=== PATIENT | female | born 1970 | race Two or more races ===

== ENCOUNTER 2024-02-27 17:53 | Inpatient (IN) | payer OTHER ==
[~2024-02-27] VITALS: Ht 165.1 cm; Wt 86.2 kg
[2024-02-27] MEDS ORDERED: LOSARTAN POTAS100 MG PO (18:03)
[2024-02-27] MEDS ORDERED: ZESTRIL20 MG PO (18:03)
[2024-02-27] MEDS ORDERED: MORPHINE SULFATE 4 MG/ML CARTRIDGE IV PRN (18:15)
[2024-02-27] MEDS ORDERED: PIPERACILLIN/TAZOBACTAM SODIUM 3.375 GM in 0.9 % SODIUM CHLORIDE 100 ML IV SCH (18:15)
[2024-02-27] MEDS ORDERED: FAMOTIDINE/PF 20 MG in 0.9 % SODIUM CHLORIDE 8 ML IV PUSH STA (18:15)
[2024-02-27] MEDS ORDERED: RINGERS SOLUTION,LACTATED 1,000 ML IV SCH (18:30)
[2024-02-27 18:50] LABS: HEMATOCRIT 41.1 % (36.0-45.00); HEMOGLOBIN 13.5 g/dL (12.0-15.00); MEAN CELL VOLUME 81.7 fL (80.00-100.00); MEAN CORPUSCULAR HEMOGLOBIN 26.8 pg (27.00-32.0); MEAN CORPUSCULAR HGB CONC 32.8 g/dl (32.0-36.0); PLATELET COUNT 244 K/uL (150-450); RED BLOOD COUNT 5.03 M/uL (4.00-6.00); RED CELL DISTRIBUTION WIDTH 14.7 % (11.5-14.5)
[2024-02-27 19:05] LABS: INR 1.23; PARTIAL THROMBOPLASTIN TIME 31.3 SECONDS (22.0-34.0); PROTHROMBIN TIME 13.2 SECONDS (9.0-11.5)
[2024-02-27 19:09] LABS: ALBUMIN 3.5 gm/dL (3.4-5.0); BILIRUBIN TOTAL 1.16 mg/dL (0.3-1.2); CREATININE SERUM 0.91 mg/dL (0.55-1.02); GFR 64.67; GLOBULINA 4.5 G/DL (2.4-3.5); POTASSIUM 3.64 mEq/L (3.5-5.1)
[2024-02-27 19:56] LABS: PH,URINE 5.5 (5.0-8.0); URINE APPEARANCE Clear; URINE BILIRRUBIN Negative (NEGATIVE); URINE BLOOD Negative; URINE COLOR Yellow; URINE GLUCOSE Negative (NEGATIVE); URINE KETONE 15 (NEGATIVE); URINE LEUKOCYTE Negative; URINE NITRATE Negative; URINE PROTEIN 30 (NEGATIVE); URINE UROBILINOGEN 0.2 E.U./dl
[2024-02-27 20:28] LABS: URINE BACTERIA SOME; URINE RBC 0-3 /HPF
[2024-02-27] MEDS ORDERED: FAMOTIDINE/PF 20 MG in 0.9 % SODIUM CHLORIDE 8 ML IV PUSH SCH (22:27)
[2024-02-27] MEDS ORDERED: 0.9 % SODIUM CHLORIDE 1,000 ML IV SCH (22:30)
[2024-02-28] MEDS ORDERED: PIPERACILLIN/TAZOBACTAM SODIUM 3.375 GM in 0.9 % SODIUM CHLORIDE 100 ML IV SCH
[2024-02-28 02:36] VITALS: BP 111/65; O2SAT 99
[2024-02-28 08:00] VITALS: BP 122/89; O2SAT 91
[2024-02-28] MEDS ORDERED: LOSARTAN POTASSIUM 100 MG TABLET PO SCH (12:00)
[2024-02-28] MEDS ORDERED: ACETAMINOPHEN 500 MG GEL..CAP PO SCH (13:58)
[2024-02-28] MEDS ORDERED: ENOXAPARIN SODIUM 40 MG/0.4 ML SYRINGE SUBCUTANEO NR (14:35)
[2024-02-28 16:30] VITALS: BP 108/81; O2SAT 95
[2024-02-29 04:15] VITALS: BP 117/82; O2SAT 93
[2024-02-29] MEDS ORDERED: ENOXAPARIN SODIUM 40 MG/0.4 ML SYRINGE SUBCUTANEO SCH (09:00)
[2024-02-29] MEDS ORDERED: ONDANSETRON HCL 2 MG/ML VIAL IV PRN (09:30)
[2024-02-29 09:42] VITALS: BP 141/94; O2SAT 98
[2024-02-29 13:12] LABS: CALCIUM 8.7 mg/dL (8.5-10.1); CREATININE SERUM 0.65 mg/dL (0.55-1.02); GFR 95.35; POTASSIUM 3.29 mEq/L (3.5-5.1)
[2024-02-29 16:00] VITALS: BP 107/102; O2SAT 97
[2024-02-29 16:04] LABS: URINE APPEARANCE Clear; URINE BILIRRUBIN Negative (NEGATIVE); URINE BLOOD Small; URINE COLOR Dark Yellow; URINE LEUKOCYTE Negative; URINE NITRATE Negative
[2024-02-29 16:08] LABS: URINE BACTERIA 51.4 uL (0.0-1933); URINE EPITHELIAL CELLS 48.7 uL (0.0-38.8); URINE RBC 38.1 uL (0.0-20.8); URINE WBC 11.3 uL (0.0-23.2)
[2024-02-29 16:48] LABS: URINE CAST 1.03 uL (0.0-1.40); URINE CRYSTALS FEW /HPF; URINE GLUCOSE 100 MG/DL (NEGATIVE); URINE KETONE 40 (NEGATIVE); URINE MUCUS SCANT; URINE PROTEIN 300 (NEGATIVE)
[2024-02-29 16:49] LABS: URINE YEAST FEW /hpf
[2024-02-29] MEDS ORDERED: MORPHINE SULFATE 4 MG/ML CARTRIDGE IV PRN (21:15)
[2024-02-29 22:03] VITALS: BP 146/100
[2024-03-01] VITALS (7 sets, daily range): BP systolic 158–173; BP diastolic 95–122; O2SAT 97–100
[2024-03-01] MEDS ORDERED: POTASSIUM BICARBONATE/CIT AC 25 MEQ TABLET.EFF PO SCH ×2 (09:00→17:00)
[2024-03-01 11:31] LABS: CALCIUM 7.8 mg/dL (8.5-10.1); CREATININE SERUM 0.46 mg/dL (0.55-1.02); GFR 142.1; POTASSIUM 3.4 mEq/L (3.5-5.1)
[2024-03-01 11:42] LABS: HEMATOCRIT 35.1 % (36.0-45.00); HEMOGLOBIN 11.7 g/dL (12.0-15.00); MEAN CELL VOLUME 79.5 fL (80.00-100.00); MEAN CORPUSCULAR HEMOGLOBIN 26.5 pg (27.00-32.0); MEAN CORPUSCULAR HGB CONC 33.4 g/dl (32.0-36.0); PLATELET COUNT 239 K/uL (150-450); RED BLOOD COUNT 4.42 M/uL (4.00-6.00)
[2024-03-01] MEDS ORDERED: LACTOBACILLUS ACIDOPHILUS 1 CAP CAP PO SCH (13:00)
[2024-03-01] MEDS ORDERED: PIPERACILLIN/TAZOBACTAM SODIUM 4.5 GM in 0.9 % SODIUM CHLORIDE 100 ML IV SCH (18:00)
[2024-03-01] MEDS ORDERED: ENALAPRILAT DIHYDRATE 1.25 MG/ML VIAL IV PRN (22:15)
[2024-03-02] VITALS (7 sets, daily range): BP systolic 153–176; BP diastolic 83–115; O2SAT 95–98
[2024-03-02 11:41] LABS: HEMOGLOBIN 12.1 g/dL (12.0-15.00); MEAN CELL VOLUME 80.5 fL (80.00-100.00); MEAN CORPUSCULAR HEMOGLOBIN 26.4 pg (27.00-32.0); MEAN CORPUSCULAR HGB CONC 32.8 g/dl (32.0-36.0); PLATELET COUNT 270 K/uL (150-450); RED BLOOD COUNT 4.59 M/uL (4.00-6.00)
[2024-03-02 12:17] LABS: CALCIUM 8.2 mg/dL (8.5-10.1); CREATININE SERUM 0.59 mg/dL (0.55-1.02); GFR 106.62
[2024-03-02 13:28] LABS: POTASSIUM 2.79 mEq/L (3.5-5.1)
[2024-03-02] MEDS ORDERED: POTASSIUM CHLORIDE 20MEQ/100ML H2O PB IV SCH (17:00)
[2024-03-03] MEDS ORDERED: MORPHINE SULFATE 4 MG/ML CARTRIDGE IV PRN (01:15)
[2024-03-03 08:05] LABS: HEMATOCRIT 32.4 % (36.0-45.00); MEAN CELL VOLUME 79.8 fL (80.00-100.00); MEAN CORPUSCULAR HGB CONC 33.6 g/dl (32.0-36.0); PLATELET COUNT 291 K/uL (150-450); RED BLOOD COUNT 4.06 M/uL (4.00-6.00); RED CELL DISTRIBUTION WIDTH 14.8 % (11.5-14.5)
[2024-03-03 08:06] LABS: MEAN CORPUSCULAR HEMOGLOBIN 26.8 pg (27.00-32.0)
[2024-03-03 08:07] LABS: HEMOGLOBIN 10.9 g/dL (12.0-15.00)
[2024-03-03 08:30] VITALS: BP 165/95; O2SAT 99
[2024-03-03 08:37] LABS: CALCIUM 8.2 mg/dL (8.5-10.1); CREATININE SERUM 0.36 mg/dL (0.55-1.02); GFR 188.55; POTASSIUM 3.51 mEq/L (3.5-5.1)
[2024-03-03 15:59] VITALS: BP 175/102; O2SAT 100
[2024-03-03] MEDS ORDERED: LOSARTAN POTASSIUM 50 MG TABLET PO STA (16:32)
[2024-03-03] MEDS ORDERED: hydrALAZINE HCL 20 MG VIAL IV PRN (16:45)
[2024-03-03 19:26] VITALS: BP 145/78
[2024-03-04] VITALS: BP 163/87; O2SAT 96
[2024-03-04 08:49] VITALS: BP 163/99; O2SAT 95
[2024-03-04] MEDS ORDERED: LOSARTAN POTASSIUM 50 MG TABLET PO SCH (09:00)
[2024-03-04] MEDS ORDERED: AMLODIPINE BESYLATE 5 MG TABLET PO NR (10:30)
[2024-03-04 16:41] VITALS: BP 149/88; O2SAT 96
[2024-03-05 05:25] VITALS: BP 162/100; O2SAT 96
[2024-03-05 07:04] LABS: HEMATOCRIT 31.2 % (36.0-45.00); HEMOGLOBIN 10.6 g/dL (12.0-15.00); MEAN CORPUSCULAR HEMOGLOBIN 27.2 pg (27.00-32.0); PLATELET COUNT 357 K/uL (150-450); RED CELL DISTRIBUTION WIDTH 14.3 % (11.5-14.5)
[2024-03-05] MEDS ORDERED: AMLODIPINE BESYLATE 5 MG TABLET PO SCH (09:00)
[2024-03-05 09:35] VITALS: BP 142/86; O2SAT 97
[2024-03-05] MEDS ORDERED: PHENOL 177 ML BOTTLE MM SCH (13:00)
[2024-03-05 16:00] VITALS: BP 135/77; O2SAT 96
[2024-03-05] MEDS ORDERED: fentaNYL CITRATE 50 MCG/ML AMPUL IV PUSH ONE (17:00)
[2024-03-05] MEDS ORDERED: MIDAZOLAM HCL 2 MG/2 ML VIAL IV PUSH ONE (17:00)
[2024-03-06 02:00] VITALS: BP 136/76; O2SAT 95
[2024-03-06 19:04] VITALS: BP 139/82; O2SAT 97
[2024-03-07 04:01] VITALS: BP 140/84; O2SAT 95
[2024-03-07 16:00] VITALS: BP 149/89; O2SAT 97
[2024-03-07] MEDS ORDERED: CLOTRIMAZOLE 45 GM TUBE VAG SCH ×2 (16:45→21:00)
[2024-03-08 01:36] VITALS: BP 158/105; O2SAT 96
[2024-03-08 05:00] VITALS: BP 147/93; O2SAT 97
[2024-03-08 08:00] VITALS: BP 131/70; O2SAT 95
[2024-03-08 16:00] VITALS: BP 122/83; O2SAT 95
[2024-03-09 02:05] VITALS: BP 134/86; O2SAT 94
[2024-03-09 08:00] VITALS: BP 133/80; O2SAT 95
[2024-03-09 16:00] VITALS: BP 141/85; O2SAT 97
[2024-03-10] MEDS ORDERED: ACETAMINOPHEN 500 MG GEL..CAP PO ONE (00:30)
[2024-03-10 01:25] VITALS: BP 148/95; O2SAT 95
[2024-03-10 06:17] VITALS: BP 133/80; O2SAT 97
[2024-03-10 08:00] VITALS: BP 112/73; O2SAT 97
[2024-03-10 16:00] VITALS: BP 158/102; O2SAT 99
[2024-03-10] MEDS ORDERED: KETOROLAC TROMETHAMINE 30 MG VIAL IV SCH (22:11)
[2024-03-11] VITALS: BP 144/88; O2SAT 96
[2024-03-11 08:00] VITALS: BP 164/106
== END 2024-03-11 11:48 | disposition home or self-care (01) | DRG 371 ==
LOC: ER 17:53 → SURG 22:27
PROVIDERS: General Practice; Student in an Organized Health Care Education/Training Program; ADMIT Internal Medicine; ATTEND Internal Medicine
PROC: BW21YZZ Computerized Tomography (CT Scan) of Abdomen and Pelvis using Other Contrast (ICD-10-PCS; 2024-03-04)
PROC: 0W9J30Z Drainage of Pelvic Cavity with Drainage Device, Percutaneous Approach (ICD-10-PCS; principal; 2024-03-05)
PROC: BW21YZZ Computerized Tomography (CT Scan) of Abdomen and Pelvis using Other Contrast (ICD-10-PCS; 2024-03-09)
DX: K35.33 Acute appendicitis with perforation, localized peritonitis, and gangrene, with abscess (principal); A41.9 Sepsis, unspecified organism; D64.9 Anemia, unspecified; E87.6 Hypokalemia; I10 Essential (primary) hypertension; K52.9 Noninfective gastroenteritis and colitis, unspecified; N76.0 Acute vaginitis